=== PATIENT | male | born 1995 | race African-American/Black ===

== ENCOUNTER 2020-01-25 17:54 | Emergency (ER) | payer OTHER ==
[~2020-01-25] VITALS: Ht 170.2 cm; Wt 68.0 kg
[2020-01-25 18:23] VITALS: BP 130/84
== END 2020-01-25 19:55 | disposition home or self-care (01) ==
LOC: EEVIPCON 17:54 → ER 17:54
DX: T18.8XXA Foreign body in other parts of alimentary tract, initial encounter (principal); X58.XXXA Exposure to other specified factors, initial encounter; Y93.89 Activity, other specified; Y92.89 Other specified places as the place of occurrence of the external cause; Y99.8 Other external cause status
CPT/HCPCS: 74022

== ENCOUNTER 2020-01-31 16:08 | Inpatient (IN) | payer OTHER ==
[~2020-01-31] VITALS: Ht 170.2 cm; Wt 68.9 kg
[2020-01-31] MEDS ORDERED: SODIUM CHLORIDE 0.9% 1,000 ML IV ONE ×2 (16:11)
[2020-01-31 17:11] LABS: Basophils # (auto) 0 10 ^3/uL (0-0.2); Basophils % (auto) 0.7 % (0.0-2.0); Eosinophils # (auto) 0 10 ^3/uL (0-0.8); Eosinophils % (auto) 0.3 % (0.0-7.0); Hematocrit 41.3 % (41.0-53.0); Hemoglobin 13.9 g/dL (13.5-17.5); Lymphocytes # (auto) 1.8 10 ^3/uL (0.4-5.4); Lymphocytes % (auto) 38.4 % (10.0-50.0); Mean Corpuscular Hemoglobin 31.4 pg (28.0-32.0); Mean Corpuscular Hgb Conc. 33.7 g/dL (32.0-36.0); Mean Corpuscular Volume 93.3 fL (80.0-100.0); Monocytes # (auto) 0.4 10 ^3/uL (0-1.3); Monocytes % (auto) 9.3 % (0.0-12.0); Neutrophils # (auto) 2.4 10 ^3/uL (1.6-8.6); Neutrophils % (auto) 51.3 % (37.0-80.0); Nucleated Red Blood Cells % 0.1 %; Platelet Count (auto) 241 10^3/uL (140-450); Red Blood Cells 4.43 10^6/uL (4.5-5.90); Red Cell Distribution Width 13.7 % (11.8-14.3); White Blood Cell 4.6 10^3/uL (4.4-10.8)
[2020-01-31 17:25] LABS: Albumin 3.6 g/dL (3.4-5.0); Calcium 8.6 mg/dL (8.5-10.1); Potassium 4.3 mmol/L (3.5-5.1)
[2020-01-31 17:27] LABS: BUN/Creatinine Ratio 11.5
[2020-01-31 17:29] LABS: Bilirubin, Total 0.5 mg/dL (0.2-1.0); Total Protein 7.8 g/dL (6.4-8.2)
[2020-01-31 17:30] LABS: INR 1.18 (0.9-1.15)
[2020-01-31] MEDS ORDERED: NITROGLYCERIN 0.4 MG SL TAB SL PRN (17:45)
[2020-01-31] MEDS ORDERED: KETOROLAC TROMETH 30 MG/ML 1ML VIAL IV PRN (17:45)
[2020-01-31] MEDS ORDERED: MORPHINE SULF INJ 2 MG/ML SYRINGE 1ML IV PRN (17:45)
[2020-01-31] MEDS: D5W/SOD CHL 0.45% 1,000 ML IV SCH (18:04)
[2020-01-31 21:12] VITALS: BP 122/71
[2020-02-01] MEDS ORDERED: SERT-376 PO (00:52)
[2020-02-01] MEDS: D5W/SOD CHL 0.45% 1,000 ML IV SCH ×3 (01:46→17:30)
[2020-02-01 04:53] VITALS: BP 120/73
[2020-02-01 07:47] LABS: Hematocrit 39.4 % (41.0-53.0); Hemoglobin 13.2 g/dL (13.5-17.5); Mean Corpuscular Hemoglobin 31.5 pg (28.0-32.0); Mean Corpuscular Hgb Conc. 33.5 g/dL (32.0-36.0); Platelet Count (auto) 209 10^3/uL (140-450); Red Blood Cells 4.19 10^6/uL (4.5-5.90); Red Cell Distribution Width 13.5 % (11.8-14.3)
[2020-02-01 07:55] LABS: Band Neutrophils % (manual) 0; Basophils % (manual) 0 (0.0-2.0); Blast Cells 0; Metamyelocytes % 0; Myelocytes % 0; Promyelocytes % 0
[2020-02-01 08:04] LABS: Albumin 3.2 g/dL (3.4-5.0); Calcium 8.1 mg/dL (8.5-10.1); Potassium 4.2 mmol/L (3.5-5.1)
[2020-02-01] MEDS: KETOROLAC TROMETH 30 MG/ML 1ML VIAL IV PRN ×2 (08:05→20:03)
[2020-02-01 08:09] LABS: BUN/Creatinine Ratio 12.1; Bilirubin, Total 0.8 mg/dL (0.2-1.0); Total Protein 6.8 g/dL (6.4-8.2)
[2020-02-01 08:19] LABS: Urine WBC None Seen /hpf (0 - 3)
[2020-02-01 08:27] LABS: Urine Bacteria NONE SEEN /hpf (None Seen); Urine Blood Negative /uL (Negative); Urine Mucus FEW (None Seen); Urine Specific Gravity 1.028 (1.001-1.035)
[2020-02-01 09:00] VITALS: BP 115/73
[2020-02-01 11:41] LABS: Eosinophils % (manual) 2 (0-7); Lymphocytes % (manual) 67 (10.0-50.0); Monocytes % (manual) 9 (0-12); Reactive Lymphocytes 4
[2020-02-01 13:00] VITALS: BP 118/75
[2020-02-01 17:00] VITALS: BP 118/69
[2020-02-01] MEDS ORDERED: SUCCINYLCHOLINE CHLORIDE 20 MG/ML 10ML VIAL IV ONE (17:53)
[2020-02-01] MEDS ORDERED: LIDOCAINE 1% (LOCAL ANESTH.) PF 5ml SDV ONE (17:53)
[2020-02-01] MEDS ORDERED: MIDAZOLAM HCL 1MG/1ML-2 ML VIAL ONE (17:55)
[2020-02-01] MEDS ORDERED: PROPOFOL 10 MG/ML 20 ML IV ONE (17:55)
[2020-02-01] MEDS ORDERED: BUPIVACAINE 0.5% MPF INJ 30ML SDV IJ ONE (17:58)
[2020-02-01] MEDS ORDERED: LIDOCAINE 1% HCL (LOCAL ANESTH.) INJ 20ML MDV ONE (17:58)
[2020-02-01] MEDS ORDERED: cefOXitin 2GM/100ML 100 ML IV ONE (18:01)
[2020-02-01] MEDS ORDERED: ROCURONIUM 10MG/ML 10ML VIAL IV ONE (18:09)
[2020-02-01] MEDS ORDERED: HYDROmorphone HCL 2 MG/ML VL IV PRN ×2 (18:15)
[2020-02-01] MEDS ORDERED: NALOXONE HCL 0.4 MG/ML VIAL IV PRN (18:15)
[2020-02-01] MEDS ORDERED: ONDANSETRON HCL 4 MG/2 ML VIAL IV PRN (18:15)
[2020-02-01] MEDS ORDERED: fentaNYL CITRATE 100 MCG/2 ML VL ONE (18:19)
[2020-02-01] MEDS ORDERED: GLYCOPYRROLATE 0.2 MG/ML 1ML VIAL ONE (18:30)
[2020-02-01] MEDS ORDERED: NEOSTIGMINE 1 MG/ML INJ (10mg/10ML VIAL) ONE (18:30)
[2020-02-01] MEDS ORDERED: MORPHINE SULFATE 10 MG/ML INJ 1ML SDV IV PRN (19:00)
[2020-02-01] MEDS: PANTOPRAZOLE 40 MG/10 ML VIAL INJ IV SCH (21:37)
[2020-02-01] MEDS: MORPHINE SULF INJ 2 MG/ML SYRINGE 1ML IV PRN (21:47)
[2020-02-01 22:00] VITALS: BP 132/87
[2020-02-02] MEDS: MORPHINE SULF INJ 2 MG/ML SYRINGE 1ML IV PRN ×2 (02:46→09:14)
[2020-02-02] MEDS: D5W/SOD CHL 0.45%/KCL 20MEQ 1,000 ML IV SCH ×3 (03:15→18:09)
[2020-02-02 05:00] VITALS: BP 112/65
[2020-02-02 09:00] VITALS: BP 107/63
[2020-02-02] MEDS: PANTOPRAZOLE 40 MG/10 ML VIAL INJ IV SCH ×2 (09:13→22:32)
[2020-02-02] MEDS: ENOXAPARIN SOD 40 MG/0.4 ML SYRINGE SC SCH ×2 (09:14→09:20)
[2020-02-02] MEDS: HYDROmorphone HCL 2 MG/ML VL IV PRN ×3 (12:01→22:47)
[2020-02-02 13:00] VITALS: BP 109/67
[2020-02-02 17:00] VITALS: BP 113/63
[2020-02-02 21:44] VITALS: BP 122/71
[2020-02-03] MEDS: D5W/SOD CHL 0.45%/KCL 20MEQ 1,000 ML IV SCH ×2 (01:00→11:00)
[2020-02-03] MEDS: HYDROmorphone HCL 2 MG/ML VL IV PRN ×3 (03:17→18:02)
[2020-02-03 05:00] VITALS: BP 116/70
[2020-02-03 09:39] VITALS: BP 124/72
[2020-02-03] MEDS: ENOXAPARIN SOD 40 MG/0.4 ML SYRINGE SC SCH (09:59)
[2020-02-03] MEDS: PANTOPRAZOLE 40 MG/10 ML VIAL INJ IV SCH ×3 (09:59→22:25)
[2020-02-03 14:29] VITALS: BP 134/71
[2020-02-03 16:28] VITALS: BP 130/76
[2020-02-03 22:00] VITALS: BP 128/83
[2020-02-04 05:12] VITALS: BP 126/80
[2020-02-04 08:45] VITALS: BP 119/86
[2020-02-04 09:00] VITALS: BP 119/86
[2020-02-04] MEDS ORDERED: GASTROGRAFIN 120 ML SOL ONE (09:09)
[2020-02-04] MEDS: PANTOPRAZOLE 40 MG/10 ML VIAL INJ IV SCH ×2 (09:24→21:46)
[2020-02-04] MEDS: ENOXAPARIN SOD 40 MG/0.4 ML SYRINGE SC SCH (09:24)
[2020-02-04] MEDS: ONDANSETRON HCL 4 MG/2 ML VIAL IV PRN (12:02)
[2020-02-04] MEDS: HYDROmorphone HCL 2 MG/ML VL IV PRN ×2 (12:03→18:25)
[2020-02-04 13:00] VITALS: BP 129/90
[2020-02-04 21:52] VITALS: BP 127/76
[2020-02-05] MEDS: ONDANSETRON HCL 4 MG/2 ML VIAL IV PRN ×2 (04:14→20:59)
[2020-02-05] MEDS: HYDROmorphone HCL 2 MG/ML VL IV PRN ×2 (04:21→20:58)
[2020-02-05 05:11] VITALS: BP 129/90
[2020-02-05 09:00] VITALS: BP 114/76
[2020-02-05] MEDS: ENOXAPARIN SOD 40 MG/0.4 ML SYRINGE SC SCH (09:13)
[2020-02-05] MEDS: PANTOPRAZOLE 40 MG/10 ML VIAL INJ IV SCH ×2 (09:13→20:43)
[2020-02-05 13:00] VITALS: BP 115/76
[2020-02-05 22:00] VITALS: BP 127/77
[2020-02-06 05:00] VITALS: BP 100/56
[2020-02-06 08:52] VITALS: BP 109/69
[2020-02-06] MEDS: PANTOPRAZOLE 40 MG/10 ML VIAL INJ IV SCH (09:27)
[2020-02-06] MEDS: ENOXAPARIN SOD 40 MG/0.4 ML SYRINGE SC SCH (09:28)
[2020-02-06 13:00] VITALS: BP 117/72
[2020-02-06 17:00] VITALS: BP 110/74
[2020-02-06 17:16] VITALS: BP 110/74
== END 2020-02-06 18:30 | DRG 328 ==
LOC: ER 16:08 → EEVIPCON 16:08 → OVERFLOW 16:09 → WEST WING 19:36
PROVIDERS: ADMIT Internal Medicine; ATTEND Internal Medicine
PROC: 3E0T3BZ Introduction of Anesthetic Agent into Peripheral Nerves and Plexi, Percutaneous Approach (ICD-10-PCS; 2020-02-01)
PROC: 0DB60ZZ Excision of Stomach, Open Approach (ICD-10-PCS; 2020-02-01)
PROC: 0DC60ZZ Extirpation of Matter from Stomach, Open Approach (ICD-10-PCS; principal; 2020-02-01 18:00)
DX: T18.2XXA Foreign body in stomach, initial encounter (principal); F41.9 Anxiety disorder, unspecified; F31.9 Bipolar disorder, unspecified; F20.9 Schizophrenia, unspecified; X58.XXXA Exposure to other specified factors, initial encounter; Y93.89 Activity, other specified; Y92.89 Other specified places as the place of occurrence of the external cause; Y99.8 Other external cause status; J45.909 Unspecified asthma, uncomplicated
CPT/HCPCS: 36415; 71045; 74018; 74246; 80053; 81001; 85007; 85025; 85027; 85610; 85730; 86850; 86900; 86901; 87081; 96360; 99291; C9113; G0378; J0330; J0694; J1885; J2001; J2250; J2405; J2704; J3490; J7060